=== PATIENT | male | born 1960 ===

== ENCOUNTER 2018-11-15 09:08 | Day surgery (SDC) | payer BC ==
[~2018-11-15 09:08] MED LIST: Lactated Ringers 1,000 ML IV SCH
--- NOTE | 2018-11-15 09:58 | PCM.PREANE ---
Preanesthetic Assessment - Anesthesia/Transfusion/Family Hx Anesthesia History: Prior Anesthesia Without Reaction Family History of Anesthesia Reaction: No Transfusion History: No Prior Transfusion(s) - Review of Systems General: No Symptoms Pulmonary: No Symptoms Cardiovascular: No Symptoms Neurological: No Symptoms Other: Reports: None - Physical Assessment NPO Status Date: 11/14/18 NPO Status Time: 23:00 O2 Sat by Pulse Oximetry: 97 Respiratory Rate: 16 Vital Signs: Last Vital Signs Temp 98.1 F 11/15/18 09:20 Pulse 59 L 11/15/18 09:20 Resp 16 11/15/18 09:20 BP 117/80 11/15/18 09:20 Pulse Ox 97 11/15/18 09:20 Height: 6 ft Weight: 80.286 kg ASA Class: 2 Mental Status: Alert & Oriented x3 Airway Class: Mallampati = 2 Dentition: Reports: Normal Dentition ROM/Head Extension: Full Lungs: Clear to Auscultation, Normal Respiratory Effort Cardiovascular: Regular Rate, Regular Rhythm - Allergies Allergies/Adverse Reactions: Allergies Allergy/AdvReac Type Severity Reaction Status Date / Time No Known Allergies Allergy Verified 11/12/18 14:26 - Blood Blood Available: No - Anesthesia Plan Pre-Op Medication Ordered: None - Acknowledgements Anesthesia Type Planned: MAC Pt an Appropriate Candidate for the Planned Anesthesia: Yes Alternatives and Risks of Anesthesia Discussed w Pt/Guardian: Yes Pt/Guardian Understands and Agrees with Anesthesia Plan: Yes PreAnesthesia Questionnaire Respiratory History: Reports: Asthma Gastrointestinal History: Reports: Colon Polyp, Other (See Below) Other Gastrointestinal History: early satiety and unintentional weight loss Genitourinary History: Reports: Other (See Below) Other Genitourinary History: cyst on kidney Musculoskeletal History: Reports: Fracture Other Musculoskeletal History: hx fx foot and arm - Past Surgical History Head Surgeries/Procedures: Reports: None GI Surgical History: Reports: Cholecystectomy, Colonoscopy, EGD - SUBSTANCE USE Smoking Status *Q: Never Smoker Tobacco Use Within Last Twelve Months: Snuff/Dip Recreational Drug Use History: No - HOME MEDS Home Medications: Home Meds Albuterol [Proventil HFA] 1 - 2 puff INH ASDIRECTED PRN 11/12/18 [History] Budesonide/Formoterol Fumarate [Symbicort 160-4.5 Mcg Inhaler] 1 inhalation INH BID PRN 11/12/18 [History] - CURRENT (IN HOUSE) MEDS Current Meds: Current Medications Lactated Ringer's (Ringers, Lactated) 1,000 mls @ 125 mls/hr IV ASDIRECTED [facility] Last Admin: 11/15/18 09:47 Dose: 125 mls/hr
[2018-11-15] MEDS ORDERED: fentaNYL 100 MCG/2 ML SDV ONE (11:14)
[2018-11-15] MEDS ORDERED: Propofol 200 MG/20 ML SDV ONE (11:14)
[2018-11-15] MEDS ORDERED: Midazolam 1 MG/ML 2 ML SDV ONE (11:16)
[2018-11-15] MEDS ORDERED: Lidocaine 2% 5 ML SDV ONE (11:27)
--- NOTE | 2018-11-15 11:44 | PCM.OPNOTE ---
- General Post-Op/Procedure Note Date of Surgery/Procedure: 11/15/18 Operative Procedure(s): Esophagogastroduodenoscopy with biopsy Pre Op Diagnosis: Abdominal bloating. Early satiety. Weight loss. Post-Op Diagnosis: Mild chronic gastritis. Anesthesia Technique: MAC (ASA II) Primary Surgeon: Benjamin Raza Condition: Good Free Text/Narrative:: DICTATION [id number]. CPT CODE 89007
[2018-11-15] MEDS ORDERED: Lactated Ringers 1,000 ML IV SCH (12:00)
--- NOTE | 2018-11-15 12:03 | PCM.POSTAN ---
POST ANESTHESIA ASSESSMENT - MENTAL STATUS Mental Status: Alert, Oriented - RESPIRATORY Respiratory Status: Respiratory Rate WNL, Airway Patent, O2 Saturation Stable - CARDIOVASCULAR CV Status: Pulse Rate WNL, Blood Pressure Stable - GASTROINTESTINAL GI Status: No Symptoms - POST OP HYDRATION Hydration Status: Adequate & Stable - OBSERVATIONS Free Text/Narrative:: The patient states that he is ready to go home. He tolerated the procedure well. There were no apparent anesthetic complications at this time. discharge to home per criteria.
--- NOTE | 2018-11-15 12:26 | PCM48HPAN ---
Post Anesthesia Note - EVALUATION WITHIN 48HRS OF ANESTHETIC Vital Signs in Normal Range: Yes Patient Participated in Evaluation: Yes Respiratory Function Stable: Yes Airway Patent: Yes Cardiovascular Function Stable: Yes Hydration Status Stable: Yes Pain Control Satisfactory: Yes Nausea and Vomiting Control Satisfactory: Yes Mental Status Recovered: Yes Resp Rate: 20
--- NOTE | 2018-11-15 12:38 | OR ---
SURGEON: Benjamin Raza M.D. DATE OF PROCEDURE: 11/15/2018 OPERATION PERFORMED: Esophagogastroduodenoscopy with biopsy. ANESTHESIA: MAC. ASA CLASSIFICATION: II. PREOPERATIVE DIAGNOSES: Abdominal bloating with early satiety and unexplained weight loss. POSTOPERATIVE DIAGNOSIS: Mild gastritis. No evidence of gastric outlet obstruction or gastric or esophageal neoplasm. DESCRIPTION OF PROCEDURE: The patient was taken to the endoscopy room, positioned on the endoscopy table in the supine position. Time-out was called for appropriate identification of the patient and procedure. Monitored anesthesia care was provided. The bite block was placed between the patient's teeth. The gastroscope was inserted through the bite block and advanced without difficulty through the esophagus and stomach into the duodenum. Examination was now carried out in a retrograde fashion. The duodenum shows no acute inflammatory changes or ulcerations. The stomach does show mild gastritis. No acute ulcerations or tumors were noted. There was no outlet obstruction to the stomach. The gastroscope was retroflexed to visualize the proximal stomach. No significant hiatal hernia was noted, and there were no masses noted in the upper stomach. The gastroscope was then straightened and slowly withdrawn. The GE junction is well defined and shows no acute inflammatory changes or ulcerations. The esophagus demonstrated good contractility. No mid or proximal lesions were identified. The vocal cords were briefly visualized as the scope was withdrawn and noted to move symmetrically. The gastroscope was then removed with the patient having tolerated the procedure well. He was taken to recovery room in stable condition. HASMUKH / SALUD /[id number]
== END 2018-11-15 12:45 | disposition home or self-care (01) ==
LOC: MW.SDS 09:08
PROVIDERS: ATTEND Surgery
DX: K29.70 Gastritis, unspecified, without bleeding (principal); K31.89 Other diseases of stomach and duodenum; R63.4 Abnormal weight loss; R68.81 Early satiety; N28.1 Cyst of kidney, acquired; J45.909 Unspecified asthma, uncomplicated; F17.200 Nicotine dependence, unspecified, uncomplicated; Z90.49 Acquired absence of other specified parts of digestive tract; Z68.24 Body mass index [BMI] 24.0-24.9, adult; Z86.010 Personal history of colon polyps; Z79.899 Other long term (current) drug therapy
CPT/HCPCS: 43239; J2001; J2250; J2704; J3010; J7120